=== PATIENT | male | born 2000 | race Caucasian/White ===

== ENCOUNTER 2021-05-03 02:51 | Outpatient (CLI) | payer OTHER, SELFPAY ==
[2021-05-03 13:55] LABS: Abs Immature Grans 0.04 10^3/uL (0.0-0.06); Absolute Basophil Count 0.04 10^3/uL (0.0-0.2); Absolute Eosinophil Count 0.18 10^3/uL (0.0-0.7); Absolute Lymphocyte Count 2.15 10^3/uL (1.2-3.4); Absolute Monocyte Count 0.53 10^3/uL (0.1-0.8); Absolute Neutrophil Count 1.79 10^3/uL (1.2-6.7); Basophils % 0.8; Eosinophils % 3.8; HCT 38.1 % (40.0-50.0); HGB 11.8 g/dL (13.5-17.5); Immature Grans % 0.8; Lymphocytes % 45.5; MCH 27.2 pg (27.0-33.0); MCV 87.8 fL (80-95); MPV 9.4 fL (8.0-11.0); Monocytes % 11.2; Neutrophils % 37.9; Nucleated RBC 0 %; Platelet Count 174 10^3/uL (130-400); RBC 4.34 10^6/uL (4.36-5.78); RDW 13.2 % (11.8-14.1); RDW-SD 42.8 fL; WBC 4.73 10^3/uL (4.4-10.8)
[2021-05-03 14:42] LABS: ALT 151 U/L (16-63); AST 50 U/L (15-37); Alkaline Phosphatase 142 U/L (46-116); Anion Gap 9.3 mmol/L (3-11); BUN 14 mg/dL (7-18); Bilirubin, Total 0.5 mg/dL (0.2-1.0); CO2 27.7 mmol/L (21.0-32.0); CREATININE 1.1 mg/dL (0.70-1.30); Calcium 8.7 mg/dL (8.5-10.1); Calculated LDL 64 mg/dL (<100); Chloride 106 mmol/L (98-107); Cholesterol 154 mg/dL (<200); Glucose 71 mg/dL (74-106); HDL Cholesterol 25 mg/dL (40-60); Potassium 3.9 mmol/L (3.5-5.1); Sodium 143 mmol/L (136-145); Total Protein 7.2 g/dL (6.4-8.2); Triglyceride 327 mg/dL (<150)
[2021-05-07 15:33] LABS: Chlamydia Result Negative (Negative); GC Result Negative (Negative)
[2021-05-08 00:08] LABS: 25-Hydroxy D Total 18 ng/mL; 25-Hydroxy D2 <4.0 ng/mL; 25-Hydroxy D3 18 ng/mL
== END 2021-05-03 02:52 | disposition home or self-care (01) ==
LOC: LBO 02:52
DX: Z00.00 Encounter for general adult medical examination without abnormal findings (principal)
CPT/HCPCS: 36415; 80053; 80061; 82306; 87491; 87591; 85025